=== PATIENT | male | born 1995 ===

== ENCOUNTER 2017-03-28 15:18 | Emergency (ER) | payer OTHER ==
[2017-03-28 16:00] VITALS: BP 121/63
--- NOTE | 2017-03-28 16:44 | UC ---
Back Pain HPI - HPI Summary HPI Summary: The patient comes in today for: 1. Headache: Onset: six days ago. Palliative/provocative: Laying down makes it better. And getting up makes it worse. Quality: "Pouncing" "sharp" Region: Forehead and occiput--vice-like character. Severity: 0/10 (laying down). Time: Comes and goes. Associated symptoms: Event: He had no problems with headache in the past, but six days, after getting up from sleep he had an onset of pain between his eyes. He went to work. He puts boxes in a machine. He worked from 6 Am to 2:30 PM. During his lunch hour (9 AM) he went home and got five 200 mg of ibuprofen. This did not help. HE went home at 2:30 PM. He took a 'nice hot shower' and took three 200 mg ibuprofen. Eventually, the headache went away. He went to bed pain free. But, when he woke up, the headache was gone. But, he stated 15 minutes after getting up, he had a headache start again like the day before--between the eyes. On the second day he took an 800 mg ibuprofen at 5:30 AM and he went to work. It helped for no more than 2 hours. He was headache free, then saw colors and the the headache. It was around 10 AM to 10:30 AM. He had the headache through the rest of work. He showered and went to bed. The shower with very hot water, helped. He went to bed. He work up the third day-with no headache. He walked into the bathroom and vomited. He had a sudden onset of nausea. At the end of the vomiting, he had another headache. Same place. It had the same character--"Pouncing." He brushed his teeth, got dressed he noticed weakness in both arms and legs. He went to work. He walked, but he got there later. He had the headache all that time. He continued his work. He bore his headache through work. At 2:30 PM he went home and got back in the shower (did not help). He tried Claritan with no help. He layed down which helped "a little bit." He went to sleep and woke up at that 7:30 PM and the headache was back. He went to [facility]: He had a CT scan and had IV and had a shot in the back. The CT scan resuolts: 'I don't know." He had medication in the IV (he thinks that he got two medications in the IV (one is Benadryl). These medications helped. He had an LP for reasons unknown. He does not know if he had a fever or not. He did not have the headache after the IV medications. He went home and layed down. 1-2 hours after he got home the headache came back. He has been in bed for the last two days and this help his headache. When he got up his headache would come back. He states that during the LP he had spasms of the lower left back. He states that he was diagnosed as having a "minor" headache. AFter resting at home for the last two days, he walked here. Initially, the headache was 5/10 upon getting here. Today, before he laid back, he had a headache of 7/10. After laying down, it went away. He does not have it now while laying down. He does not have consistent bowel or bladder dysfunction. Numbness/weakness: He states that the left leg is "like hanging there . " However, I was him walk in from the weight room OK. He has a primary care provider at [facility]. Unexpected weight loss: NOne known. The patient states that he had nerve damage of the left leg from a [place] [employer] incident in school. Supposedly, he went to [place] and no cause was found. * - History of Current Complaint Chief Complaint: UCBackPain Stated Complaint: HEADACHE,VOMITING Time Seen by Provider: 03/28/17 16:11 Hx Obtained From: Patient - Allergies/Home Medications Allergies/Adverse Reactions: Allergies Allergy/AdvReac Type Severity Reaction Status Date / Time Fluoxetine [From Prozac] Allergy Altered Verified 03/28/17 16:00 Mental Status Red Dye Allergy Vomiting Verified 03/28/17 16:00 Home Medications: Home Medications Ibuprofen TAB* [Motrin TAB* 800 MG] 800 mg PO ONCE 03/28/17 [History Confirmed 03/28/17] PMH/Surg Hx/FS Hx/Imm Hx Previously Healthy: Yes Endocrine History Of: Denies: Diabetes, Thyroid Disease, Hyperthyroidism, Hypothyroidism, Dyslipidemia Cardiovascular History Of: Denies: Cardiac Disorders, Hypertension, Pacemaker/ICD, Myocardial Infarction , Congestive Heart Failure, Atrial Fibrillation, Deep Vein Thrombosis, Bleeding Disorders Respiratory History Of: Denies: COPD, Asthma, Bronchitis, Pneumonia, Pulmonary Embolism GI/ History Of: Denies: Gastroesophageal Reflux, Ulcer, Gastrointestinal Bleed, Gall Bladder Disease, Kidney Stones, Diverticulitis, Renal Disease, Urosepsis Neurological History Of: Denies: TIA, CVA, Dementia, Seizures, Migraine Psychological History Of: Denies: Anxiety, Depression, Bipolar Disorder, Schizophrenia, Post Traumatic Stress Disorder Cancer History Of: Denies: Lung Cancer, Colorectal Cancer, Breast Cancer, Prostate Cancer, Cervical Cancer - Surgical History Surgical History: None - Family History Known Family History: Positive: Cardiac Disease, Hypertension, Other - MOther had sinus headache. - Social History Occupation: Employed Full-time Alcohol Use: None Substance Use Type: None Smoking Status (MU): Unknown if Ever Smoked Review of Systems Constitutional: Negative Skin: Negative Eyes: Negative ENT: Negative Respiratory: Negative Cardiovascular: Negative Gastrointestinal: Negative Genitourinary: Negative All Other Systems Reviewed And Are Negative: Yes Physical Exam Triage Information Reviewed: Yes Appearance: Well-Appearing - when laying down, seems uncomfortable when sitting up., Thin Vital Signs: Initial Vital Signs Temp 98.7 F 03/28/17 15:48 Pulse 72 03/28/17 15:48 Resp 16 03/28/17 15:48 BP 121/63 03/28/17 15:48 Pulse Ox 98 03/28/17 15:48 Eyes: Positive: Conjunctiva Clear. Negative: Discharge ENT: Positive: Hearing grossly normal. Negative: Pharyngeal erythema, Nasal congestion, Nasal drainage, TM bulging, TM dull, TM red, Tonsillar swelling, Tonsillar exudate Dental: Negative: Gross Decay/Caries @, Dental Fracture @ Neck: Positive: Supple, Nontender, No Lymphadenopathy. Negative: Nuchal Rigidity Respiratory: Positive: Lungs clear, No respiratory distress, No accessory muscle use. Negative: Crackles, Wheezing Cardiovascular: Positive: RRR, No Murmur Abdomen Description: Positive: No Organomegaly, Soft. Negative: Nontender - He has tenderness to the lower right quadrant. However, with right leg raising ( positive psoas sign), he has pain in his lower right back. He has percussion tenderness. There is rebound with sudden release after deep palpation., Distended, Guarding Musculoskeletal: Positive: Strength Intact, ROM Intact, No Edema Neurological: Positive: Alert, Muscle Tone Normal, Other: - Neurologic exam: Inspection: No fasciculations. Tone: No rigidity. Strenth: Upper extremity: patient's strenth would give away for biceps, triceps and deltoid of the right arm. Lower extremity: he has less strength of extension and adduction and abduction on the left than the right. Cranial nerves: I-XII normal. Reflexes: Upper extremity Biceps: 2+/2 x 2 Triceps: 2+/2 x 2 Brachioradialis: 2+/2 x 2 Lower extremity: Achilles: 2+/2 x 2 Patellar: 2+/2 x 2 Babinski: downgoing bilaterally. Sensation: No complaints of loss of sensation. Coordination: Upper extremity: Finger to nose was normal. He does OK. but patting of the thighs was not done on the right (poor effort?)--same for finger tips to the thumb Lower extremity: Heel up and down doherty: Normal for both extremities. Gait: Heel to toe: not done due to him having problems standing solidly.Normal REgular walking: Normal Rhomberg: Normal Psychological: Positive: Age Appropriate Behavior. Negative: Consolable Skin: Negative: rashes, breakdown Back Pain Course/Dx - Differential Dx/Diagnosis Provider Diagnoses: Right lower quadrant abdominal pain/rule out appendicitis. Chronic headache. - Physician Notifications Discussed Patient Care With: Patient discussed with Molly Rhodes at 5:22 PM Discharge - Discharge Plan Condition: Stable Disposition: HOME Additional Instructions: Patient going by amublance to [facility].
== END 2017-03-28 17:20 | disposition home or self-care (01) ==
LOC: UCCORT 15:18
DX: R10.31 Right lower quadrant pain (principal); R51 Headache
CPT/HCPCS: 99203; G0463